=== PATIENT | male | born 1995 | race Caucasian/White ===

== ENCOUNTER 2020-12-12 08:02 | Emergency (ER) | payer SELFPAY ==
[2020-12-12 09:07] LABS: HEMOGLOBIN 15.1 gm/dl (14.0-17.5); RED BLOOD COUNT 4.73 M/UL (4.20-5.50); WHITE BLOOD COUNT 8.1 K/UL (4.5-11.0)
[2020-12-12 09:28] LABS: BUN/CREATININE RATIO 7 (0-10)
[2020-12-12] MEDS ORDERED: IBUPROFEN800 MG PO (09:48)
[2020-12-12] MEDS ORDERED: CYCLOBENZAPRINE10 MG PO (09:48)
== END 2020-12-12 09:57 | disposition home or self-care (01) ==
LOC: ER1 08:02
PROVIDERS: Physician Assistant
DX: R07.81 Pleurodynia (principal); F17.210 Nicotine dependence, cigarettes, uncomplicated; Z88.0 Allergy status to penicillin; Z20.822 Contact with and (suspected) exposure to COVID-19
CPT/HCPCS: 71045; 80053; 85025; 85379; 99285; U0002

== ENCOUNTER 2020-12-18 09:33 | Emergency (ER) | payer MEDICARE ==
[~2020-12-18 09:33] MED LIST: CYCLOBENZAPRINE10 MG PO; IBUPROFEN800 MG PO
[2020-12-18] MEDS ORDERED: ZOFRAN4 MG PO (11:47)
== END 2020-12-18 11:55 | disposition home or self-care (01) ==
LOC: ER1 09:33
DX: U07.1 COVID-19 (principal); F17.200 Nicotine dependence, unspecified, uncomplicated; Z88.0 Allergy status to penicillin
CPT/HCPCS: 99284; U0002